=== PATIENT | male | born 1990 | race African-American/Black ===

== ENCOUNTER 2016-09-27 18:38 | Emergency (ER) | payer MEDICAID ==
[2016-09-27 21:05] LABS: BASOPHILS 0.3 % (0.0-2.0); EOSINOPHILS 2.6 % (0-7); HEMATOCRIT 46.3 % (42.0-54.0); HEMOGLOBIN 15.6 g/dL (13.5-17.5); IMMATURE GRANULOCYTES 0.2 % (0-5); MCH 30.6 pg (26.0-34.0); MCHC 33.7 g/dL (31.0-37.0); MCV 90.8 fL (80.0-100.0); MEAN PLATELET VOLUME 11.5 fL (7.4-10.4); MONOCYTES 6.3 % (2-11); NEUTROPHILS 57.6 % (40-80); PLATELET COUNT 213 10x3/uL (130-400); RDW 13.7 % (11.5-14.5); WBC 11.7 10x3/uL (4.8-10.8)
[2016-09-27 21:38] LABS: ALKALINE PHOSPHATASE 83 U/L (46-116); ALT (SGPT) 23 U/L (10-68); CALC OSMOLALITY 288 mosm/kg (275-300); CALCIUM 9.4 mg/dL (8.5-10.1); CARBON DIOXIDE 27.3 mmol/L (21.0-32.0); CHLORIDE - SERUM 107 mmol/L (98-107); CREATININE - SERUM 1.2 mg/dL (0.6-1.3); GLUCOSE 76 mg/dL (74-106); POTASSIUM - SERUM 4.5 mmol/L (3.5-5.1); PROTEIN - SERUM 7.7 g/dL (6.4-8.2); SODIUM 147 mmol/L (136-145); UREA NITROGEN 8 mg/dL (7-18); eGFR NON AFRICAN AMERICAN 77 mL/min (90-120)
[2016-09-28 02:21] LABS: APPEARANCE CLEAR (CLEAR); BILIRUBIN NEGATIVE (NEGATIVE); COLOR YELLOW (YELLOW); GLUCOSE NEGATIVE (NEGATIVE); KETONE NEGATIVE (NEGATIVE); LEUKOCYTE ESTERASE NEGATIVE (NEGATIVE); NITRITE NEGATIVE (NEGATIVE); PROTEIN NEGATIVE (NEGATIVE); SPECIFIC GRAVITY 1.015 (1.005-1.020); UROBILINOGEN NORMAL (NORMAL)
[2016-09-28 02:27] LABS: UDS - AMPHET NEGATIVE QUAL (NEGATIVE); UDS - BARB NEGATIVE QUAL (NEGATIVE); UDS - BENZO NEGATIVE QUAL (NEGATIVE); UDS - COCAINE POSITIVE QUAL (NEGATIVE); UDS - METH NEGATIVE QUAL (NEGATIVE); UDS - OPIATE NEGATIVE QUAL (NEGATIVE); UDS - PCP NEGATIVE QUAL (NEGATIVE); UDS - THC POSITIVE QUAL (NEGATIVE)
== END 2016-09-28 10:58 | disposition short-term general hospital (02) ==
LOC: D.ER 18:38
PROVIDERS: Physician Assistant Medical
DX: F29 Unspecified psychosis not due to a substance or known physiological condition (principal)